=== PATIENT | male | born 1955 | race Caucasian/White ===

== ENCOUNTER 2017-03-22 15:32 | Emergency (ER) | payer BC ==
[~2017-03-22] VITALS: Ht 175.3 cm; Wt 110.6 kg
[~2017-03-22 15:32] MED LIST: ASPI-611 PO; CITA-50 PO; FINA5TAB40 PO; HYDR-2164 PO; LOVA20TA71 PO; METF-200 PO; METO-68 PO
[2017-03-22 15:37] VITALS: Ht 175.3 cm; Wt 110.6 kg
--- OUTSIDE RECORDS SUMMARY | 2017-03-22 15:37 | XMS REPORT | Referral Summary ---
Author Author [facility] Organization [facility] Address Unknown Phone Unavailable Care Team Providers Care Core Winding Operator Name Role Phone Russell Rosa Primary Care Physician [phone] Encounter VC Date(s): 09/03/15 - 09/03/15 [facility] [address] [place] [address] [place] [id number] Discharge Diagnosis: Soft tissue mass Discharge Disposition: 01-Home or Self Care Attending Physician: Rickie Lopez MD Admitting Physician: Rickie Lopez MD Referring Physician: Nick Rosa MD Vital Signs Most recent to 1 oldest [Reference Range]: Temperature Tympanic 36.9 degC [36.6-38.1 degC] (09/03/15 8:52 AM) Blood Pressure 122/86 mmHg [90-140/60-90 mmHg] (09/03/15 8:52 AM) Problem List Condition Effective Dates Status Health Status Informant Adult-onset Active obesity(Confirmed) Anxiety(Confirmed) Active Benign essential Active HTN(Confirmed) BPH (benign Active prostatic hyperplasia)(Confirm ed) Controlled diabetes Active mellitus(Confirmed) Chronic Active gout(Confirmed) Hyperlipidemia(Confi Active rmed) ED (erectile Active dysfunction)(Confirm ed) Mass on Active back(Confirmed) Snoring(Confirmed) Active Allergies, Adverse Reactions, Alerts No Known Allergies Medications aspirin 81 mg oral tablet 81 mg 1 tabs, Oral, Daily, # 30 tabs, 0 Refill(s) Start Date: 09/03/15 Status: Ordered Cialis 20 mg oral tablet tabs, Oral, Daily, 0 Refill(s) Start Date: 05/07/14 Status: Ordered citalopram 20 mg oral tablet See Instructions, TAKE ONE TABLET BY MOUTH ONCE DAILY, # 90 tabs, 1 Refill(s), eRx: [id number], TAKE ONE TABLET BY MOUTH ONCE DAILY Start Date: 08/01/15 Status: Ordered Daily Multivitamins oral tablet 1 tabs, Oral, Daily, 0 Refill(s) Start Date: 09/03/15 Status: Ordered finasteride 5 mg oral tablet See Instructions, TAKE ONE TABLET BY MOUTH ONCE DAILY NEEDS APPT PRIOR TO ADDITIONAL REFILLS, # 90 tabs, 0 Refill(s), Pharmacy: [facility] [id number], TAKE ONE TABLET BY MOUTH ONCE DAILY; NEEDS APPT PRIOR TO ADDITIONAL REFILLS Start Date: 07/17/15 Status: Ordered Fish Oil 1000 mg oral capsule 1,000 mg 1 caps, Oral, BID, # 60 caps, 0 Refill(s) Start Date: 09/03/15 Status: Ordered hydrochlorothiazide 25 mg oral tablet 1 tabs, Oral, Daily, # 90 tabs, 1 Refill(s), Pharmacy: [facility] [id number], 1 tabs Oral Daily,x90 days Start Date: 12/24/14 Stop Date: 06/22/15 Status: Ordered HYDROCHLOROTHIAZIDE 25MG TAB See Instructions, TAKE ONE TABLET BY MOUTH ONCE DAILY, # 90 tabs, 1 Refill(s), eRx: [facility] [id number], TAKE ONE TABLET BY MOUTH ONCE DAILY Start Date: 08/01/15 Status: Ordered lisinopril 30 mg oral tablet 1 tabs, Oral, Daily, # 30 tabs, 0 Refill(s), Pharmacy: [facility] [id number] Start Date: 12/24/14 Status: Ordered lovastatin 20 mg oral tablet See Instructions, TAKE TWO TABLETS BY MOUTH ONCE DAILY, # 180 tabs, 1 Refill(s) , eRx: [facility] [id number], TAKE TWO TABLETS BY MOUTH ONCE DAILY Start Date: 08/01/15 Status: Ordered metFORMIN 500 mg oral tablet See Instructions, TAKE ONE TABLET BY MOUTH ONCE DAILY, # 90 tabs, 1 Refill(s), eRx: [facility] [id number], TAKE ONE TABLET BY MOUTH ONCE DAILY Start Date: 08/01/15 Status: Ordered Metoprolol Tartrate 50 mg oral tablet See Instructions, TAKE ONE TABLET BY MOUTH TWICE DAILY, # 180 tabs, 2 Refill(s) , eRx: [facility] [id number], TAKE ONE TABLET BY MOUTH TWICE DAILY Start Date: 08/07/15 Status: Ordered Results No data available for this section Immunizations No data available for this section Procedures Procedure Date Related Diagnosis Body Site Prostate specific antigen 02/14/12 Prostate specific antigen 08/13/11 Prostate specific antigen 05/18/11 Colonoscopy Social History Social History Type Response Smoking Status Never smoker Assessment and Plan No data available for this section
--- OUTSIDE RECORDS SUMMARY | 2017-03-22 15:37 | XMS REPORT | Referral Summary ---
Author Author [facility] Organization [facility] Address Unknown Phone Unavailable Care Team Providers Care Fisher Eel Spear Name Role Phone Russell Rosa Primary Care Physician [phone] Encounter Date(s): 06/23/16 - 06/23/16 [facility] [address] [place] [address] [place] [id number]- Discharge Disposition: 01-Home or Self Care Attending Physician: Nick Rosa MD Admitting Physician: Nick Rosa MD Vital Signs Most recent to 1 oldest [Reference Range]: Blood Pressure 140/100 mmHg [90-140/60-90 mmHg] (06/23/16 2:26 PM) Problem List Condition Effective Dates Status Health Status Informant Adult-onset Active obesity(Confirmed) Anxiety(Confirmed) Active Benign essential Active HTN(Confirmed) BPH (benign Active prostatic hyperplasia)(Confirm ed) Controlled diabetes Active mellitus(Confirmed) Chronic Active gout(Confirmed) Hyperlipidemia(Confi Active rmed) ED (erectile Active dysfunction)(Confirm ed) Mass on Active back(Confirmed) Chronic left Active shoulder pain(Confirmed) Snoring(Confirmed) Active Allergies, Adverse Reactions, Alerts No Known Allergies Medications aspirin 81 mg oral tablet 81 mg 1 tabs, Oral, Daily, # 30 tabs, 0 Refill(s) Start Date: 09/03/15 Status: Ordered Cialis 20 mg oral tablet See Instructions, TAKE 1/2 TO 1 TABLET BY MOUTH ONE OR TWO HOURS BEFORE USE ON AN EMPTY STOMACH, # 6 tabs, 0 Refill(s), Pharmacy: [id number], TAKE 1/2 TO 1 TABLET BY MOUTH ONE OR TWO HOURS BEFORE USE ON AN EMPTY STOMACH Start Date: 06/23/16 Status: Ordered citalopram 20 mg oral tablet 20 mg 1 tabs, Oral, Daily, # 90 tabs, 1 Refill(s), Pharmacy: [facility], 1 tabs Oral Daily Start Date: 06/23/16 Status: Ordered Daily Multivitamins oral tablet 1 tabs, Oral, Daily, 0 Refill(s) Start Date: 09/03/15 Status: Ordered finasteride 5 mg oral tablet 5 mg 1 tabs, Oral, Daily, # 90 tabs, 1 Refill(s), Pharmacy: [facility], 1 tabs Oral Daily Start Date: 06/23/16 Status: Ordered Fish Oil 1000 mg oral capsule 1,000 mg 1 caps, Oral, BID, # 60 caps, 0 Refill(s) Start Date: 09/03/15 Status: Ordered hydrochlorothiazide 25 mg oral tablet 25 mg 1 tabs, Oral, Daily, # 90 tabs, 1 Refill(s), Pharmacy: [id number], 1 tabs Oral Daily,x90 days Start Date: 06/23/16 Stop Date: 12/20/16 Status: Ordered lisinopril 30 mg oral tablet 30 mg 1 tabs, Oral, Daily, # 90 tabs, 1 Refill(s), Pharmacy: [facility] Start Date: 06/23/16 Status: Ordered lovastatin 20 mg oral tablet 40 mg 2 tabs, Oral, Daily, # 180 tabs, 1 Refill(s), Pharmacy: [facility], 2 tabs Oral Daily,x90 days Start Date: 05/27/16 Stop Date: 11/23/16 Status: Ordered metFORMIN 500 mg oral tablet 500 mg 1 tabs, Oral, Daily, # 90 tabs, 1 Refill(s), Pharmacy: [facility], 1 tabs Oral Daily Start Date: 06/23/16 Status: Ordered Metoprolol Tartrate 50 mg oral tablet 50 mg 1 tabs, Oral, BID, # 180 tabs, 1 Refill(s), Pharmacy: [facility], 1 tabs Oral BID Start Date: 06/23/16 Status: Ordered Results No data available for this section Immunizations No data available for this section Procedures Procedure Date Related Diagnosis Body Site Excision of lipoma1 09/18/15 Prostate specific antigen 02/14/12 Prostate specific antigen 08/13/11 Prostate specific antigen 05/18/11 Colonoscopy 1LIPOMA REMOVED FROM RIGHT LATERAL CHEST AND LEFT LUMBAR AREA. Social History Social History Type Response Smoking Status Never smoker Assessment and Plan Extracted from: Title: Ambulatory Patient Education Author: Nick Rosa MD Date: Family Medicine Arthritis, Nonspecific Arthritis is inflammation of a joint. This usually means pain, redness, warmth or swelling are present. One or more joints may be involved. There are a number of types of arthritis. Your caregiver may not be able to tell what type of arthritis you have right away. CAUSES The most common cause of arthritis is the wear and tear on the joint ( osteoarthritis). This causes damage to the cartilage, which can break down over time. The knees, hips, back and neck are most often affected by this type of arthritis. Other types of arthritis and common causes of joint pain include: Sprains and other injuries near the joint. Sometimes minor sprains and injuries cause pain and swelling that develop hours later. Rheumatoid arthritis. This affects hands, feet and knees. It usually affects both sides of your body at the same time. It is often associated with chronic ailments, fever, weight loss and general weakness. Crystal arthritis. Gout and pseudo gout can cause occasional acute severe pain, redness and swelling in the foot, ankle, or knee. Infectious arthritis. Bacteria can get into a joint through a break in overlying skin. This can cause infection of the joint. Bacteria and viruses can also spread through the blood and affect your joints. Drug, infectious and allergy reactions. Sometimes joints can become mildly painful and slightly swollen with these types of illnesses. SYMPTOMS Pain is the main symptom. Your joint or joints can also be red, swollen and warm or hot to the touch. You may have a fever with certain types of arthritis, or even feel overall ill. The joint with arthritis will hurt with movement. Stiffness is present with some types of arthritis. DIAGNOSIS Your caregiver will suspect arthritis based on your description of your symptoms and on your exam. Testing may be needed to find the type of arthritis: Blood and sometimes urine tests. X-ray tests and sometimes CT or MRI scans. Removal of fluid from the joint (arthrocentesis) is done to check for bacteria, crystals or other causes. Your caregiver (or a specialist) will numb the area over the joint with a local anesthetic, and use a needle to remove joint fluid for examination. This procedure is only minimally uncomfortable. Even with these tests, your caregiver may not be able to tell what kind of arthritis you have. Consultation with a specialist (patent lawyer) may be helpful. TREATMENT Your caregiver will discuss with you treatment specific to your type of arthritis. If the specific type cannot be determined, then the following general recommendations may apply. Treatment of severe joint pain includes: Rest. Elevation. Anti-inflammatory medication (for example, ibuprofen) may be prescribed. Avoiding activities that cause increased pain. Only take [id number] or prescription medicines for pain and discomfort as recommended by your caregiver. Cold packs over an inflamed joint may be used for 10 to 15 minutes every hour. Hot packs sometimes feel better, but do not use overnight. Do not use hot packs if you are diabetic without your caregiver's permission. A cortisone shot into arthritic joints may help reduce pain and swelling. Any acute arthritis that gets worse over the next 1 to 2 days needs to be looked at to be sure there is no joint infection. Long-term arthritis treatment involves modifying activities and lifestyle to reduce joint stress jarring. This can include weight loss. Also, exercise is needed to nourish the joint cartilage and remove waste. This helps keep the muscles around the joint strong. HOME CARE INSTRUCTIONS Do not take aspirin to relieve pain if gout is suspected. This elevates uric acid levels. Only take lxss-que-eelrprz or prescription medicines for pain, discomfort or fever as directed by your caregiver. Rest the joint as much as possible. If your joint is swollen, keep it elevated. Use crutches if the painful joint is in your leg. Drinking plenty of fluids may help for certain types of arthritis. Follow your caregiver's dietary instructions. Try low-impact exercise such as: Swimming. Water aerobics. Biking. Walking. Morning stiffness is often relieved by a warm shower. Put your joints through regular kwchz-pu-pzdavl. SEEK MEDICAL CARE IF: You do not feel better in 24 hours or are getting worse. You have side effects to medications, or are not getting better with treatment. SEEK IMMEDIATE MEDICAL CARE IF: You have a fever. You develop severe joint pain, swelling or redness. Many joints are involved and become painful and swollen. There is severe back pain and/or leg weakness. You have loss of bowel or bladder control. This information is not intended to replace advice given to you by your health care provider. Make sure you discuss any questions you have with your health care provider. Document Released: 11/24/2005 Document Revised: 11/07/2015 Document Reviewed: Exit[employer] Patient Information 2016 [employer] [facility]. No follow up information was provided. Extracted from: Title: Office Visit Note Author: Nick Rosa MD Date: 06/23/16 Assessment/Plan Adult-onset obesity Diet and exercise as tolerated and feasible. Consider medication when interested. Anxiety This issue was reviewed, appears stable, and current therapy continued except as mentioned. Appropriate lab was reviewed from the most recent appropriate entry and lab was ordered if needed in the cpoe/nursing orders, and follow up recommended generally in 90 days and no later then six months. Benign essential HTN This issue was reviewed, appears stable, and current therapy continued except as mentioned. Appropriate lab was reviewed from the most recent appropriate entry and lab was ordered if needed in the cpoe/nursing orders, and follow up recommended generally in 90 days and no later then six months. The patient reports their blood pressure has been stable at home and is not having any significant or related problems. There has been no chest pain, chest pressure, soa/red. BPH (benign prostatic hyperplasia) This issue was reviewed, appears stable, and current therapy continued except as mentioned. Appropriate lab was reviewed from the most recent appropriate entry and lab was ordered if needed in the cpoe/nursing orders, and follow up recommended generally in 90 days and no later then six months. Chronic gout This issue was reviewed, appears stable, and current therapy continued except as mentioned. Appropriate lab was reviewed from the most recent appropriate entry and lab was ordered if needed in the cpoe/nursing orders, and follow up recommended generally in 90 days and no later then six months. Lab pending. Chronic left shoulder pain We discussed several options for treatment for this condition. The patient declined any changes or other treatments at this time. Controlled diabetes mellitus This issue was reviewed, appears stable, and current therapy continued except as mentioned. Appropriate lab was reviewed from the most recent appropriate entry and lab was ordered if needed in the cpoe /nursing orders, and follow up recommended generally in 90 days and no later then six months. The patient was notified for the need for regular quarterly f/u of their diabetes. Further any pertinent medication, supplies, etc were refilled. Additionally, they are to have annual eye exams, foot exams, and regular care. [place] [facility] [place] (erectile dysfunction) This issue was reviewed, appears stable, and current therapy continued except as mentioned. Appropriate lab was reviewed from the most recent appropriate entry and lab was ordered if needed in the cpoe /nursing orders, and follow up recommended generally in 90 days and no later then six months. Hyperlipidemia This issue was reviewed, appears stable, and current therapy continued except as mentioned. Appropriate lab was reviewed from the most recent appropriate entry and lab was ordered if needed in the cpoe/nursing orders, and follow up recommended generally in 90 days and no later then six months. [place] [facility] [place]
--- OUTSIDE RECORDS SUMMARY | 2017-03-22 15:37 | XMS REPORT | Continuity of Care Document ---
Author Author Patrice PEREZ, [facility] [address] [place] [address] [facility] [place] [address] Phone Care Team Providers Care Chain Mender Name Role Phone Nick Rosa PP Unavailable Payers Payer name Insurance type Covered constitution party ID Authorization(s) Unknown Problems Condition Effective Dates (start - stop) Clinical Status Health examination of defined subpopulations - *Routine Well male exam - *Chronic Other specified temporomandibular joint disorders - *Resolved Hypertension, Benign - *Chronic Other and unspecified hyperlipidemia - *Controlled Anxiety - *Controlled Diabetes Mellitus Type 2, Uncomplicated - *Chronic BPH - *Controlled Erectile Dysfunction - *Controlled Hypertension, Benign - *Chronic Diabetes Mellitus Type 2, Uncomplicated - *Chronic Other and unspecified hyperlipidemia - *Chronic Anxiety - *Chronic Erectile Dysfunction - *Chronic Obesity - *Chronic Depression - *Chronic Otalgia - *Acute Temporomandibular joint disorders, unspecified - *Acute Hypertension, Benign - *Chronic Other and unspecified hyperlipidemia - *Chronic Diabetes Mellitus Type 2, Uncomplicated - *Chronic BPH - *Chronic Erectile Dysfunction - *Chronic Anxiety - *Chronic Family History Family Member Diagnosis Age At Onset Status Mother (Unknown) Alive and well (Unknown) Father (Unknown) Alive and well (Unknown) Social History Social History Element Description Quantity Unknown Allergies, Adverse Reactions, Alerts Substance Reaction Severity Status Unknown Medications Medication Instructions Dosage Effective Dates (start - stop) Status Glucophage 500 mg tablet Take 1 tablet by mouth every day. - Active Celexa 20 mg tablet Take 1 tablet by mouth every day. - Active Ativan 0.5 mg tablet Take 1 tablet by mouth every 8 hours as needed. - Active finasteride 5 mg tablet Take 1 tablet by mouth every day. - Active hydrochlorothiazide 25 mg tablet Take 1 tablet by mouth every day. 2013 - Active metoprolol tartrate 50 mg tablet Take 1 tablet by mouth twice a day. - Active Mevacor 20 mg tablet take 2 tablet (40MG) by oral route every day with the evening meal 40 MG - Active Cialis 20 mg tablet Take 1/2 to 1 tablet by mouth 1 or 2 hours before use on an empty stomach. - Active Immunizations Vaccine Date Status Comments Unknown Results Test Name Date and Time Measure Units Reference Range Abnormal Flag Comments Unknown Vital Signs Date / Time: Height Weight Pulse Rate Blood Pressure Temperature /13:23:00 69.00 in 233.00 lbs 70 /min 136/88 mm[Hg] Procedures Procedure Date Unknown Encounters Encounter Location Date Patient Visit [facility] Patient Visit [facility] Patient [facility] Patient [facility] Patient Visit [facility] Advance Directives Directive Effective Date Unknown
--- OUTSIDE RECORDS SUMMARY | 2017-03-22 15:37 | XMS REPORT | Referral Summary ---
Author Author [facility] Organization [facility] Address Unknown Phone Unavailable Care Team Providers Care Tin Flopper Name Role Phone Russell Rosa Primary Care Physician [phone] Encounter VC Date(s): 08/27/15 - 08/27/15 [facility] [address] [place] [address] [place] [id number]- Discharge Disposition: 01-Home or Self Care Attending Physician: Nick Rosa MD Admitting Physician: Nick Rosa MD Vital Signs Most recent to 1 oldest [Reference Range]: Blood Pressure 150/90 mmHg [90-140/60-90 mmHg] *HI* (08/27/15 1:37 PM) Problem List Condition Effective Dates Status Health Status Informant Adult-onset Active obesity(Confirmed) Anxiety(Confirmed) Active Benign essential Active HTN(Confirmed) BPH (benign Active prostatic hyperplasia)(Confirm ed) Controlled diabetes Active mellitus(Confirmed) Chronic Active gout(Confirmed) Hyperlipidemia(Confi Active rmed) ED (erectile Active dysfunction)(Confirm ed) Mass on Active back(Confirmed) Snoring(Confirmed) Active Allergies, Adverse Reactions, Alerts No Known Allergies Medications Cialis 20 mg oral tablet tabs, Oral, Daily, 0 Refill(s) Start Date: 05/07/14 Status: Ordered citalopram 20 mg oral tablet See Instructions, TAKE ONE TABLET BY MOUTH ONCE DAILY, # 90 tabs, 1 Refill(s), eRx: [facility], TAKE ONE TABLET BY MOUTH ONCE DAILY Start Date: 08/01/15 Status: Ordered finasteride 5 mg oral tablet See Instructions, TAKE ONE TABLET BY MOUTH ONCE DAILY NEEDS APPT PRIOR TO ADDITIONAL REFILLS, # 90 tabs, 0 Refill(s), Pharmacy: [facility], TAKE ONE TABLET BY MOUTH ONCE DAILY; NEEDS APPT PRIOR TO ADDITIONAL REFILLS Start Date: 07/17/15 Status: Ordered hydrochlorothiazide 25 mg oral tablet 1 tabs, Oral, Daily, # 90 tabs, 1 Refill(s), Pharmacy: [place] [facility] [id number], 1 tabs Oral Daily,x90 days Start Date: 12/24/14 Stop Date: 06/22/15 Status: Ordered HYDROCHLOROTHIAZIDE 25MG TAB See Instructions, TAKE ONE TABLET BY MOUTH ONCE DAILY, # 90 tabs, 1 Refill(s), eRx: [place] [facility] [id number], TAKE ONE TABLET BY MOUTH ONCE DAILY Start Date: 08/01/15 Status: Ordered lisinopril 30 mg oral tablet 1 tabs, Oral, Daily, # 30 tabs, 0 Refill(s), Pharmacy: [place] [facility] [id number] Start Date: 12/24/14 Status: Ordered lovastatin 20 mg oral tablet See Instructions, TAKE TWO TABLETS BY MOUTH ONCE DAILY, # 180 tabs, 1 Refill(s) , eRx: [place] [facility] [id number], TAKE TWO TABLETS BY MOUTH ONCE DAILY Start Date: 08/01/15 Status: Ordered metFORMIN 500 mg oral tablet See Instructions, TAKE ONE TABLET BY MOUTH ONCE DAILY, # 90 tabs, 1 Refill(s), eRx: [facility] [id number], TAKE ONE TABLET BY MOUTH ONCE DAILY Start Date: 08/01/15 Status: Ordered Metoprolol Tartrate 50 mg oral tablet See Instructions, TAKE ONE TABLET BY MOUTH TWICE DAILY, # 180 tabs, 2 Refill(s) , eRx: [facility], TAKE ONE TABLET BY MOUTH TWICE DAILY [...] Author: Nick Rosa MD Date: Family Medicine Cryotherapy Cryotherapy means treatment with cold. Ice or gel packs can be used to reduce both pain and swelling. Ice is the most helpful within the first 24 to 48 hours after an injury or flare-up from overusing a muscle or joint. Sprains, strains, spasms, burning pain, shooting pain, and aches can all be eased with ice. Ice can also be used when recovering from surgery. Ice is effective, has very few side effects, and is safe for most people to use. PRECAUTIONS Ice is not a safe treatment option for people with: Raynaud phenomenon. This is a condition affecting small blood vessels in the extremities. Exposure to cold may cause your problems to return. Cold hypersensitivity. There are many forms of cold hypersensitivity, including: Cold urticaria. Red, itchy hives appear on the skin when the tissues begin to warm after being iced. Cold erythema. This is a red, itchy rash caused by exposure to cold. Cold hemoglobinuria. Red blood cells break down when the tissues begin to warm after being iced. The hemoglobin that carry oxygen are passed into the urine because they cannot combine with blood proteins fast enough. Numbness or altered sensitivity in the area being iced. If you have any of the following conditions, do not use ice until you have discussed cryotherapy with your caregiver: Heart conditions, such as arrhythmia, angina, or chronic heart disease. High blood pressure. Healing wounds or open skin in the area being iced. Current infections. Rheumatoid arthritis. Poor circulation. Diabetes. Ice slows the blood flow in the region it is applied. This is beneficial when trying to stop inflamed tissues from spreading irritating chemicals to surrounding tissues. However, if you expose your skin to cold temperatures for too long or without the proper protection, you can damage your skin or nerves. Watch for signs of skin damage due to cold. HOME CARE INSTRUCTIONS Follow these tips to use ice and cold packs safely. Place a dry or damp towel between the ice and skin. A damp towel will cool the skin more quickly, so you may need to shorten the time that the ice is used. For a more rapid response, add gentle compression to the ice. Ice for no more than 10 to 20 minutes at a time. The bonier the area you are icing, the less time it will take to get the benefits of ice. Check your skin after 5 minutes to make sure there are no signs of a poor response to cold or skin damage. Rest 20 minutes or more between uses. Once your skin is numb, you can end your treatment. You can test numbness by very lightly touching your skin. The touch should be so light that you do not see the skin dimple from the pressure of your fingertip. When using ice, most people will feel these normal sensations in this order: cold, burning, aching, and numbness. Do not use ice on someone who cannot communicate their responses to pain, such as small children or people with dementia. HOW TO MAKE AN ICE PACK Ice packs are the most common way to use ice therapy. Other methods include ice massage, ice baths, and cryosprays. Muscle creams that cause a cold, tingly feeling do not offer the same benefits that ice offers and should not be used as a substitute unless recommended by your caregiver. To make an ice pack, do one of the following: Place crushed ice or a bag of frozen vegetables in a sealable plastic bag. Squeeze out the excess air. Place this bag inside another plastic bag. Slide the bag into a pillowcase or place a damp towel between your skin and the bag. Mix 3 parts water with 1 part rubbing alcohol. Freeze the mixture in a sealable plastic bag. When you remove the mixture from the freezer, it will be slushy. Squeeze out the excess air. Place this bag inside another plastic bag. Slide the bag into a pillowcase or place a damp towel between your skin and the bag. SEEK MEDICAL CARE IF: You develop white spots on your skin. This may give the skin a blotchy ( mottled) appearance. Your skin turns blue or pale. Your skin becomes waxy or hard. Your swelling gets worse. MAKE SURE YOU: Understand these instructions. Will watch your condition. Will get help right away if you are not doing well or get worse. Document Released: 06/12/2012 Document Revised: 03/03/2015 Document Reviewed: [employer] Patient Information 2015 [facility], [facility]. This information is not intended to replace advice given to you by your health care provider. Make sure you discuss any questions you have with your health care provider. No follow up information was provided. Extracted from: Title: Office Visit Note Author: Nick Rosa MD Date: 08/27/15 Assessment/Plan Acute leg pain This issue is stable and appropriate refills, lab, and f/u have been discussed. The patient's outside physician records were reviewed. Any pertinent outside records, lab, and xrays were also reviewed if available. Hosp note reviewed. Encounter related to worker's compensation claim He has limitations and a RTW note already by report. He is on time off and plan partial day return on 09/01. I would recommendNO extendeddriving for another week and to continue an asa 81mg daily. Close monitoring for dvt. Leg hematoma See above. The patient has family members present who are agreeable with today's plan and have no additional concerns or requests. hold worker from employer is here.
--- OUTSIDE RECORDS SUMMARY | 2017-03-22 15:37 | XMS REPORT | Referral Summary ---
Author Author [facility] Organization [facility] Address Unknown Phone Unavailable Care Team Providers Care Motor Home Electrical Foreman Name Role Phone Russell Rosa Primary Care Physician [phone] Encounter Date(s): 08/27/15 - 08/27/15 [facility] [address] [place] [address] [place] [phone]- Discharge Disposition: 01-Home or Self Care Attending [...] ON AN EMPTY STOMACH, # 6 tabs, eRx: [facility], TAKE 1/2 TO 1 TABLET BY MOUTH ONE OR TWO HOURS BEFORE USE ON AN EMPTY STOMACH Start Date: 12/19/15 Status: Ordered citalopram 20 mg oral tablet See Instructions, TAKE ONE TABLET BY MOUTH ONCE DAILY, # 90 tabs, 1 Refill(s), eRx: [facility], TAKE ONE TABLET BY MOUTH ONCE DAILY Start Date: 08/01/15 Status: Ordered citalopram 20 mg oral tablet See Instructions, TAKE ONE TABLET BY MOUTH ONCE DAILY, # 90 tabs, eRx: [facility], TAKE ONE TABLET BY MOUTH ONCE DAILY Start Date: 02/26/16 Status: Ordered Daily Multivitamins oral tablet 1 tabs, Oral, Daily, 0 Refill(s) Start Date: 09/03/15 Status: Ordered finasteride 5 mg oral tablet See Instructions, TAKE ONE TABLET BY MOUTH ONCE DAILY, # 90 tabs, eRx: [facility] [id number], TAKE ONE TABLET BY MOUTH ONCE DAILY Start Date: 01/20/16 Status: Ordered Fish Oil 1000 mg oral capsule 1,000 mg 1 caps, Oral, BID, # 60 caps, 0 Refill(s) Start Date: 09/03/15 Status: Ordered HYDROCHLOROT 25MG TAB See Instructions, TAKE ONE TABLET BY MOUTH ONCE DAILY, # 90 tabs, eRx: [place] [address], TAKE ONE TABLET BY MOUTH ONCE DAILY Start Date: 02/26/16 Status: Ordered hydrochlorothiazide 25 mg oral tablet 1 tabs, Oral, Daily, # 90 tabs, 1 Refill(s), Pharmacy: [place] [address], 1 tabs Oral Daily,x90 days Start Date: 12/24/14 Stop Date: 06/22/15 Status: Ordered lisinopril 30 mg oral tablet 1 tabs, Oral, Daily, # 30 tabs, 0 Refill(s), Pharmacy: [place] [address] Start Date: 12/24/14 Status: Ordered lovastatin 20 mg oral tablet See Instructions, TAKE TWO TABLETS BY MOUTH ONCE DAILY, # 180 tabs, 1 Refill(s) , eRx: [place] [address], TAKE TWO TABLETS BY MOUTH ONCE DAILY Start Date: 08/01/15 Status: Ordered lovastatin 20 mg oral tablet See Instructions, TAKE TWO TABLETS BY MOUTH ONCE DAILY, # 180 tabs, eRx: [facility], TAKE TWO TABLETS BY MOUTH ONCE DAILY Start Date: 02/26/16 Status: Ordered metFORMIN 500 mg oral tablet See Instructions, TAKE ONE TABLET BY MOUTH ONCE DAILY, # 90 tabs, eRx: [facility] [id number], TAKE ONE TABLET BY MOUTH ONCE DAILY Start Date: 01/28/16 Status: Ordered Metoprolol Tartrate 50 mg oral tablet See Instructions, TAKE ONE TABLET BY MOUTH TWICE DAILY, # 180 tabs, 2 Refill(s) , eRx: [id number], TAKE ONE TABLET BY MOUTH TWICE DAILY [...] Released: 06/12/2012 Document Revised: 03/03/2015 Document Reviewed: [facility] Patient Information 2015 [employer] [employer] [facility]. This information is not intended to replace [...] and have no additional concerns or requests. care worker from employer is here.
--- OUTSIDE RECORDS SUMMARY | 2017-03-22 15:37 | XMS REPORT | Referral Summary ---
Author Author [facility] Organization [facility] Address Unknown Phone Unavailable Care Team Providers Care Staff Sonographer Name Role Phone Russell Rosa Primary Care Physician [phone] Encounter VC Date(s): 07/31/15 - 07/31/15 [facility] [address] [place] [phone]- Discharge Disposition: 01-Home or Self Care Attending Physician: Nick Rosa MD Admitting Physician: Nick Rosa MD Vital Signs Most recent to 1 oldest [Reference Range]: Blood Pressure 160/90 mmHg [90-140/60-90 mmHg] *HI* (07/31/15 4:09 PM) Problem List Condition Effective Dates Status [...] AN EMPTY STOMACH, # 6 tabs, eRx: [email or web address], TAKE 1/2 TO 1 TABLET BY MOUTH ONE OR TWO HOURS BEFORE USE ON AN EMPTY STOMACH Start Date: 12/19/15 Status: Ordered citalopram 20 mg oral tablet See Instructions, TAKE ONE TABLET BY MOUTH ONCE DAILY, # 90 tabs, 1 Refill(s), eRx: [email or web address], TAKE ONE TABLET BY MOUTH ONCE DAILY Start Date: 08/01/15 Status: Ordered Daily Multivitamins oral tablet 1 tabs, Oral, Daily, 0 Refill(s) Start Date: 09/03/15 Status: Ordered finasteride 5 mg oral tablet See Instructions, TAKE ONE TABLET BY MOUTH ONCE DAILY, # 90 tabs, eRx: [facility], TAKE ONE TABLET BY MOUTH ONCE DAILY Start Date: 01/20/16 Status: Ordered Fish Oil 1000 mg oral capsule 1,000 mg 1 caps, Oral, BID, # 60 caps, 0 Refill(s) Start Date: 09/03/15 Status: Ordered hydrochlorothiazide 25 mg oral tablet 1 tabs, Oral, Daily, # 90 tabs, 1 Refill(s), Pharmacy: [place] [address], 1 tabs Oral Daily,x90 days Start Date: 12/24/14 Stop Date: 06/22/15 Status: Ordered lisinopril 30 mg oral tablet 1 tabs, Oral, Daily, # 30 tabs, 0 Refill(s), Pharmacy: [place] [address] Start Date: 12/24/14 Status: Ordered lovastatin 20 mg oral tablet See Instructions, TAKE TWO TABLETS BY MOUTH ONCE DAILY, # 180 tabs, 1 Refill(s) , eRx: [facility], TAKE TWO TABLETS BY MOUTH ONCE DAILY Start Date: 08/01/15 Status: Ordered metFORMIN 500 mg oral tablet See Instructions, TAKE ONE TABLET BY MOUTH ONCE DAILY, # 90 tabs, eRx: [facility], TAKE ONE TABLET BY MOUTH ONCE DAILY Start Date: 01/28/16 Status: Ordered Metoprolol Tartrate 50 mg oral tablet See Instructions, TAKE ONE TABLET BY MOUTH TWICE DAILY, # 180 tabs, 2 Refill(s) , eRx: [facility], TAKE ONE TABLET BY MOUTH TWICE DAILY [...] Author: Nick Rosa MD Date: Family Medicine Cholesterol Cholesterol is a white, waxy, fat-like substance needed by your body in small amounts. The liver makes all the cholesterol you need. Cholesterol is carried from the liver by the blood through the blood vessels. Deposits of cholesterol ( plaque) may build up on blood vessel bryan. These make the arteries narrower and stiffer. Cholesterol plaques increase the risk for heart attack and stroke. You cannot feel your cholesterol level even if it is very high. The only way to know it is high is with a blood test. Once you know your cholesterol levels, you should keep a record of the test results. Work with your health care provider to keep your levels in the desired range. WHAT DO THE RESULTS MEAN? Total cholesterol is a rough measure of all the cholesterol in your blood. LDL is the so-called bad cholesterol. This is the type that deposits cholesterol in the bryan of the arteries. You want this level to be low. HDL is the good cholesterol because it cleans the arteries and carries the LDL away. You want this level to be high. Triglycerides are fat that the body can either burn for energy or store. High levels are closely linked to heart disease. WHAT ARE THE DESIRED LEVELS OF CHOLESTEROL? Total cholesterol below 200. LDL below 100 for people at risk, below 70 for those at very high risk. HDL above 50 is good, above 60 is best. Triglycerides below 150. HOW CAN I LOWER MY CHOLESTEROL? Diet. Follow your diet programs as directed by your health care provider. Choose fish or white meat chicken and turkey, roasted or baked. Limit fatty cuts of red meat, fried foods, and processed meats, such as sausage and lunch meats. Eat lots of fresh fruits and vegetables. Choose whole grains, beans, pasta, potatoes, and cereals. Use only small amounts of olive, corn, or canola oils. Avoid butter, mayonnaise, shortening, or palm kernel oils. Avoid foods with trans fats. Drink skim or nonfat milk and eat low-fat or nonfat yogurt and cheeses. Avoid whole milk, cream, ice cream, egg yolks, and full-fat cheeses. Healthy desserts include wiley food cake, josé antonio snaps, animal crackers, hard candy, popsicles, and low-fat or nonfat frozen yogurt. Avoid pastries, cakes, pies, and cookies. Exercise. Follow your exercise programs as directed by your health care provider. A regular program helps decrease LDL and raise HDL. A regular program helps with weight control. Do things that increase your activity level like gardening, walking, or taking the stairs. Ask your health care provider about how you can be more active in your daily life. Medicine. Take medicine only as directed by your health care provider. Medicine may be prescribed by your health care provider to help lower cholesterol and decrease the risk for heart disease. If you have several risk factors, you may need medicine even if your levels are normal. Document Released: 07/12/2002 Document Revised: 03/03/2015 Document Reviewed: [facility] Patient Information 2015 [employer]. This information is not intended to replace advice given to you by your health care provider. Make sure you discuss any questions you have with your health care provider. No follow up information was provided. Extracted from: Title: Office Visit Note Author: Nick Rosa MD Date: 07/31/15 Assessment/Plan Anxiety This issue is stable and appropriate refills, lab, and f/u have been discussed. A work/school note was offered and deferred by the patient. The patient has family members present who are agreeable with today's plan and have no additional concerns or requests. here. Benign essential HTN This issue is stable and appropriate refills, lab, and f/ u have been discussed. The patient reports their blood pressure has been stable at home and is not having any significant or related problems. There has been no chest pain, chest pressure, soa/red. Agrees to monitor bp. BPH (benign prostatic hyperplasia) This issue is stable and appropriate refills, lab, and f/u have been discussed. Chronic gout This issue is stable and appropriate refills, lab, and f/u have been discussed. Controlled diabetes mellitus This issue is stable and appropriate refills, lab , and f/u have been discussed. The patient was notified for the need for regular quarterly f/u of their diabetes. Further any pertinent medication, supplies, etc were refilled. Additionally, they are to have annual eye exams, foot exams, and regular care. Lab pending. Hyperlipidemia This issue is stable and appropriate refills, lab, and f/u have been discussed. Mass on back To Dr. LAGUERRE for evaluation and excision if indicated. Snoring This issue is stable and appropriate refills, lab, and f/u have been discussed. Addendum Lab had to be [place] [facility] [place]. by Nick Rosa MD on July 31, 2015 16:33:06 CDT
--- OUTSIDE RECORDS SUMMARY | 2017-03-22 15:37 | XMS REPORT | Referral Summary ---
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 Phone Russell Rosa Primary Care Physician [phone] Encounter VC Date(s): 12/24/14 - 12/24/14 [facility] [address] [place] [address] [place] [id number]- Discharge Diagnosis: High cholesterol Discharge Diagnosis: Snoring Discharge Diagnosis: Abnormal glucose Discharge Diagnosis: Controlled diabetes mellitus Discharge Diagnosis: ED (erectile dysfunction) Discharge Diagnosis: Hypertension Discharge Diagnosis: BPH (benign prostatic hyperplasia) Discharge Diagnosis: Adult-onset obesity Discharge Disposition: Home or Self Care Attending Physician: Nick Rosa MD Admitting Physician: Nick Rosa MD Vital Signs Most recent to 1 oldest [Reference Range]: Blood Pressure 160/110 mmHg [90-140/60-90 mmHg] *HI* (12/24/14 10:57 AM) Problem List Condition Effective Dates Status Health Status Informant Adult-onset Active obesity(Confirmed) Anxiety(Confirmed) Active Benign essential Active HTN(Confirmed) BPH (benign Active prostatic hyperplasia)(Confirm ed) Controlled diabetes Active mellitus(Confirmed) Hyperlipidemia(Confi Active rmed) ED (erectile Active dysfunction)(Confirm ed) Snoring(Confirmed) Active Allergies, Adverse Reactions, Alerts No data available for this section Medications Ativan 0.5 mg oral tablet 1 tabs, Oral, TID, as needed for anxiety, [facility], # 30 tabs, 0 Refill(s) Special Instructions: [facility] Start Date: 05/09/14 Status: Ordered CeleXA 20 mg oral tablet 1 tabs, Oral, Daily, # 90 tabs, 1 Refill(s), Pharmacy: [id number], 1 tabs Oral Daily Start Date: 05/09/14 Status: Ordered Cialis 20 mg oral tablet tabs, Oral, Daily, 0 Refill(s) Start Date: 05/07/14 Status: Ordered cyclobenzaprine 10 mg oral tablet 1 tabs, Oral, TID, as needed for spasm, # 60 tabs, 0 Refill(s), Pharmacy: [id number], 1 tabs Oral TID,PRN:as needed for spasm Start Date: 06/12/14 Status: Ordered finasteride 5 mg oral tablet 1 tabs, Oral, Daily, # 90 tabs, 1 Refill(s), Pharmacy: [facility], 1 tabs Oral Daily Start Date: 12/24/14 Status: Ordered hydrochlorothiazide 25 mg oral tablet 1 tabs, Oral, Daily, # 90 tabs, 1 Refill(s), Pharmacy: [place] [id number], 1 tabs Oral Daily,x90 days Start Date: 12/24/14 Stop Date: 06/22/15 Status: Ordered lisinopril 30 mg oral tablet 1 tabs, Oral, Daily, # 30 tabs, 0 Refill(s), Pharmacy: [place] [id number] Start Date: 12/24/14 Status: Ordered metFORMIN 500 mg oral tablet 1 tabs, Oral, Daily, # 90 tabs, 1 Refill(s), Pharmacy: [facility], 1 tabs Oral Daily Start Date: 05/09/14 Status: Ordered Metoprolol Tartrate 50 mg oral tablet 1 tabs, Oral, BID, # 180 tabs, 1 Refill(s), Pharmacy: [id number], 1 tabs Oral BID Start Date: 05/09/14 Status: Ordered Mevacor 20 mg oral tablet 2 tabs, Oral, Daily, # 180 tabs, 1 Refill(s), Pharmacy: [facility], 2 tabs Oral Daily Start Date: 08/12/14 Status: Ordered [place] 5 mg-325 mg oral tablet 1-2 tabs, Oral, TID, as needed for pain, [facility], # 60 tabs, 0 Refill(s) Special Instructions: [facility] Start Date: 06/12/14 Status: Ordered Results No data available for this section Immunizations No data available for this section Procedures Procedure Date Related Diagnosis Body Site Prostate specific antigen 02/14/12 Prostate specific antigen 08/13/11 Prostate specific antigen 05/18/11 Colonoscopy Social History Social History Type Response Smoking Status Never smoker Assessment and Plan Extracted from: Title: Ambulatory Patient Education Author: Nick Rosa MD Date: Family Medicine Arterial Hypertension Arterial hypertension (high blood pressure ) is a condition of elevated pressure in your blood vessels. Hypertension over a long period of time is a risk factor for strokes, heart attacks, and heart failure. It is also the leading cause of kidney (renal ) failure. CAUSES In Adults -- Over 90% of all hypertension has no known cause. This is called essential or primary hypertension. In the other 10% of people with hypertension, the increase in blood pressure is caused by another disorder. This is called secondary hypertension . Important causes of secondary hypertension are: Heavy alcohol use. Obstructive sleep apnea. Hyperaldosterosim (Conn's syndrome). Steroid use. Chronic kidney failure. Hyperparathyroidism. Medications. Renal artery stenosis. Pheochromocytoma. Ana's disease. Coarctation of the aorta. Scleroderma renal crisis. Licorice (in excessive amounts). Drugs (cocaine, methamphetamine). Your caregiver can explain any items above that apply to you. In Children -- Secondary hypertension is more common and should always be considered. -- Few women of childbearing age have high blood pressure. However, up to 10% of them develop hypertension of . Generally, this will not harm the woman. It may be a sign of 3 complications of : preeclampsia, HELLP syndrome, and eclampsia. Follow up and control with medication is necessary. SYMPTOMS This condition normally does not produce any noticeable symptoms. It is usually found during a routine exam. Malignant hypertension is a late problem of high blood pressure. It may have the following symptoms: Headaches. Blurred vision. End-organ damage (this means your kidneys, heart, lungs, and other organs are being damaged). Stressful situations can increase the blood pressure. If a person with normal blood pressure has their blood pressure go up while being seen by their caregiver, this is often termed "white coat hypertension." Its importance is not known. It may be related with eventually developing hypertension or complications of hypertension. Hypertension is often confused with mental tension, stress, and anxiety. DIAGNOSIS The diagnosis is made by 3 separate blood pressure measurements. They are taken at least 1 week apart from each other. If there is organ damage from hypertension, the diagnosis may be made without repeat measurements. Hypertension is usually identified by having blood pressure readings: Above 140/90 mmHg measured in both arms, at 3 separate times, over a couple weeks. Over 130/80 mmHg should be considered a risk factor and may require treatment in patients with diabetes. Blood pressure readings over 120/80 mmHg are called "pre-hypertension" even in non-diabetic patients. To get a true blood pressure measurement, use the following guidelines. Be aware of the factors that can alter blood pressure readings. Take measurements at least 1 hour after caffeine. Take measurements 30 minutes after smoking and without any stress. This is another reason to quit smoking it raises your blood pressure. Use a proper cuff size. Ask your caregiver if you are not sure about your cuff size. Most home blood pressure cuffs are automatic. They will measure systolic and diastolic pressures. The systolic pressure is the pressure reading at the start of sounds. Diastolic pressure is the pressure at which the sounds disappear. If you are elderly, measure pressures in multiple postures. Try sitting, lying or standing. Sit at rest for a minimum of 5 minutes before taking measurements. You should not be on any medications like decongestants. These are found in many cold medications. Record your blood pressure readings and review them with your caregiver. If you have hypertension: Your caregiver may do tests to be sure you do not have secondary hypertension (see "causes" above). Your caregiver may also look for signs of metabolic syndrome. This is also called Syndrome X or Insulin Resistance Syndrome. You may have this syndrome if you have type 2 diabetes, abdominal obesity, and abnormal blood lipids in addition to hypertension. Your caregiver will take your medical and family history and perform a physical exam. Diagnostic tests may include blood tests (for glucose, cholesterol, potassium, and kidney function), a urinalysis, or an EKG. Other tests may also be necessary depending on your condition. PREVENTION There are important lifestyle issues that you can adopt to reduce your chance of developing hypertension: Maintain a normal weight. Limit the amount of salt (sodium ) in your diet. Exercise often. Limit alcohol intake. Get enough potassium in your diet. Discuss specific advice with your caregiver. Follow a DASH diet (dietary approaches to stop hypertension). This diet is rich in fruits, vegetables, and low-fat dairy products, and avoids certain fats. PROGNOSIS Essential hypertension cannot be cured. Lifestyle changes and medical treatment can lower blood pressure and reduce complications. The prognosis of secondary hypertension depends on the underlying cause. Many people whose hypertension is controlled with medicine or lifestyle changes can live a normal, healthy life. RISKS AND COMPLICATIONS While high blood pressure alone is not an illness, it often requires treatment due to its short- and long-term effects on many organs. Hypertension increases your risk for: CVAs or strokes (cerebrovascular accident ). Heart failure due to chronically high blood pressure (hypertensive cardiomyopathy ). Heart attack (myocardial infarction ). Damage to the retina (hypertensive retinopathy ). Kidney failure (hypertensive nephropathy ). Your caregiver can explain list items above that apply to you. Treatment of hypertension can significantly reduce the risk of complications. TREATMENT For overweight patients, weight loss and regular exercise are recommended. Physical fitness lowers blood pressure. Mild hypertension is usually treated with diet and exercise. A diet rich in fruits and vegetables, fat-free dairy products, and foods low in fat and salt (sodium ) can help lower blood pressure. Decreasing salt intake decreases blood pressure in a 1/3 of people. Stop smoking if you are a smoker. The steps above are highly effective in reducing blood pressure. While these actions are easy to suggest, they are difficult to achieve. Most patients with moderate or severe hypertension end up requiring medications to bring their blood pressure down to a normal level. There are several classes of medications for treatment. Blood pressure pills (antihypertensives ) will lower blood pressure by their different actions. Lowering the blood pressure by 10 mmHg may decrease the risk of complications by as much as 25%. The goal of treatment is effective blood pressure control. This will reduce your risk for complications. Your caregiver will help you determine the best treatment for you according to your lifestyle. What is excellent treatment for one person, may not be for you. HOME CARE INSTRUCTIONS Do not smoke. Follow the lifestyle changes outlined in the "Prevention" section. If you are on medications, follow the directions carefully. Blood pressure medications must be taken as prescribed. Skipping doses reduces their benefit. It also puts you at risk for problems. Follow up with your caregiver, as directed. If you are asked to monitor your blood pressure at home, follow the guidelines in the "Diagnosis" section above. SEEK MEDICAL CARE IF: You think you are having medication side effects. You have recurrent headaches or lightheadedness. You have swelling in your ankles. You have trouble with your vision. SEEK IMMEDIATE MEDICAL CARE IF: You have sudden onset of chest pain or pressure, difficulty breathing, or other symptoms of a heart attack. You have a severe headache. You have symptoms of a stroke (such as sudden weakness, difficulty speaking , difficulty walking). MAKE SURE YOU: Understand these instructions. Will watch your condition. Will get help right away if you are not doing well or get worse. Document Released: 10/17/2006 Document Revised: 01/08/2013 Document Reviewed: [employer] Patient Information 2014 [email or web address]. No follow up information was provided. Extracted from: Title: Office Visit Note Author: Nick Rosa MD Date: 12/24/14 Assessment/Plan Abnormal glucose This issue is stable and appropriate refills, lab, and f/u have been discussed. Lab pending. Ordered: Hemoglobin A1c TSH with Reflex Free T4 Adult-onset obesity Diet and exercise when bp is better controlled. A work/school note was offered and deferred by the patient. BPH (benign prostatic hyperplasia) This issue is stable and appropriate refills, lab, and f/u have been discussed. Controlled diabetes mellitus This issue is stable and appropriate refills, lab , and f/u have been discussed. Lab pending. ED (erectile dysfunction) This issue is stable and appropriate refills, lab, and f/u have been discussed. Samples of cialis given as a courtesy. High cholesterol This issue is stable and appropriate refills, lab, and f/u have been discussed. Ordered: Lipid Panel Hypertension Add lisinopril 10mg po qhs and close follow up. Awaiting lab. Very elevated blood pressure may be a reflection of his alcohol use or untreated sleep apnea. Cut back on alcohol, get a sleep medicine evaluation, stop all otc nsaids, watch diet. Ordered: CBC w/ Differential Comprehensive Metabolic Panel Uric Acid Uric Acid Urinalysis with Culture if Indicated Snoring To [facility] for snoring evaluation. Orders: finasteride, 1 tabs, Oral, Daily, # 90 tabs, 1 Refill(s), [facility], 1 tabs Oral Daily hydrochlorothiazide, 1 tabs, Oral, Daily, # 90 tabs, 1 Refill(s), Pharmacy: [facility], 1 tabs Oral Daily,x90 days lisinopril, 1 tabs, Oral, Daily, # 30 tabs, 0 Refill(s), Pharmacy: [facility]
--- OUTSIDE RECORDS SUMMARY | 2017-03-22 15:37 | XMS REPORT | Continuity of Care Document ---
Author Author Anisa Krishnan LPN Ambulatory Address [address] [place] [id number] Phone Unavailable Care Team Providers Care Broadcast Operations Technician Name Role Phone Nick Rosa PP Unavailable Payers Payer name Insurance type Covered green party ID Authorization(s) Unknown Problems Condition Effective Dates (start - stop) Clinical Status Otalgia - *Acute Temporomandibular joint disorders, unspecified - *Acute Hypertension, Benign - *Chronic Other and unspecified hyperlipidemia - *Chronic Diabetes Mellitus Type 2, Uncomplicated - *Chronic BPH - *Chronic Erectile Dysfunction - *Chronic Anxiety - *Chronic Hypertension, Benign - *Chronic Diabetes Mellitus Type 2, Uncomplicated - *Chronic Other and unspecified hyperlipidemia - *Chronic Anxiety - *Chronic Erectile Dysfunction - *Chronic Obesity - *Chronic Depression - *Chronic Family History Family Member Diagnosis Age At Onset Status Mother (Unknown) Alive and well (Unknown) Father (Unknown) Alive and well (Unknown) Social History Social History Element Description Quantity Unknown Allergies, Adverse Reactions, Alerts Substance Reaction Severity Status Unknown Medications Medication Instructions Dosage Effective Dates (start - stop) Status Celexa 20 mg tablet Take 1 tablet by mouth every day. - Active finasteride 5 mg tablet Take 1 tablet by mouth every day. - Active hydrochlorothiazide 25 mg tablet Take 1 tablet by mouth every day. 2012 - Active Cialis 20 mg tablet Take 1/2 to 1 tablet by mouth 1 or 2 hours before use on an empty stomach. - Active Ativan 0.5 mg tablet Take 1 tablet by mouth every 8 hours as needed. - Active metoprolol tartrate 50 mg tablet Take 1 tablet by mouth twice a day. - Active Mevacor 20 mg tablet take 2 tablet (40MG) by oral route every day with the evening meal 40 MG - Active Glucophage 500 mg tablet Take 1 tablet by mouth every day. - Active Immunizations Vaccine Date Status Comments Unknown Results Test Name Date and Time Measure Units Reference Range Abnormal Flag Comments Unknown Vital Signs Date / Time: Height Weight Pulse Rate Blood Pressure Temperature /16:32:00 70.00 in 236.00 lbs 160/92 mm[Hg] 98.0 F Procedures Procedure Date Unknown Encounters Encounter Location Date Patient Visit [facility] Patient Visit [facility] Patient Visit [facility] Patient Visit [facility] Advance Directives Directive Effective Date Unknown
--- OUTSIDE RECORDS SUMMARY | 2017-03-22 15:37 | XMS REPORT | Referral Summary ---
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 Role Phone Russell Rosa Primary Care Physician [phone] Encounter VC Date(s): 12/16/15 - 12/16/15 [facility], Family [address] [place] [id number]- Discharge Disposition: 01-Home or Self Care Attending Physician: Nick Rosa MD Admitting Physician: Nick Rosa MD Vital Signs Most recent to 1 oldest [Reference Range]: Blood Pressure 140/90 mmHg [90-140/60-90 mmHg] (12/16/15 9:59 AM) Problem List Condition Effective Dates Status [...] DAILY, # 90 tabs, 1 Refill(s), eRx: [id number], TAKE ONE TABLET BY MOUTH ONCE DAILY Start Date: 08/01/15 Status: Ordered Daily Multivitamins oral tablet 1 tabs, Oral, Daily, 0 Refill(s) Start Date: 09/03/15 Status: Ordered finasteride 5 mg oral tablet See Instructions, TAKE ONE TABLET BY MOUTH ONCE DAILY, # 90 tabs, eRx: [facility], TAKE ONE TABLET BY MOUTH ONCE DAILY Start Date: 10/22/15 Status: Ordered Fish Oil 1000 mg oral capsule 1,000 mg 1 caps, Oral, BID, # 60 caps, 0 Refill(s) Start Date: 09/03/15 Status: Ordered hydrochlorothiazide 25 mg oral tablet 1 tabs, Oral, Daily, # 90 tabs, 1 Refill(s), Pharmacy: [place] [id number], 1 tabs Oral Daily,x90 days Start Date: 12/24/14 Stop Date: 06/22/15 Status: Ordered lisinopril 30 mg oral tablet 1 tabs, Oral, Daily, # 30 tabs, 0 Refill(s), Pharmacy: [place] [id number] Start Date: 12/24/14 Status: Ordered lovastatin 20 mg oral tablet See Instructions, TAKE TWO TABLETS BY MOUTH ONCE DAILY, # 180 tabs, 1 Refill(s) , eRx: [place] [id number], TAKE TWO TABLETS BY MOUTH ONCE DAILY Start Date: 08/01/15 Status: Ordered metFORMIN 500 mg oral tablet See Instructions, TAKE ONE TABLET BY MOUTH ONCE DAILY, # 90 tabs, 1 Refill(s), eRx: [place] [id number], TAKE ONE TABLET BY MOUTH ONCE DAILY Start Date: 08/01/15 Status: Ordered Metoprolol Tartrate 50 mg oral tablet See Instructions, TAKE ONE TABLET BY MOUTH TWICE DAILY, # 180 tabs, 2 Refill(s) , eRx: [place] [id number], TAKE ONE TABLET BY MOUTH TWICE DAILY [...] Author: Nick Rosa MD Date: Family Medicine Benign Prostatic Hyperplasia An enlarged prostate (benign prostatic hyperplasia) is common in older men. You may experience the following: Weak urine stream. Dribbling. Feeling like the bladder has not emptied completely. Difficulty starting urination. Getting up frequently at night to urinate. Urinating more frequently during the day. HOME CARE INSTRUCTIONS Monitor your prostatic hyperplasia for any changes. The following actions may help to alleviate any discomfort you are experiencing: Give yourself time when you urinate. Stay away from alcohol. Avoid beverages containing caffeine, such as coffee, tea, and fidencio, because they can make the problem worse. Avoid decongestants, antihistamines, and some prescription medicines that can make the problem worse. Follow up with your health care provider for further treatment as recommended. SEEK MEDICAL CARE IF: You are experiencing progressive difficulty voiding. Your urine stream is progressively getting narrower. You are awaking from sleep with the urge to void more frequently. You are constantly feeling the need to void. You experience loss of urine, especially in small amounts. SEEK IMMEDIATE MEDICAL CARE IF: You develop increased pain with urination or are unable to urinate. You develop severe abdominal pain, vomiting, a high fever, or fainting. You develop back pain or blood in your urine. MAKE SURE YOU: Understand these instructions. Will watch your condition. Will get help right away if you are not doing well or get worse. This information is not intended to replace advice given to you by your health care provider. Make sure you discuss any questions you have with your health care provider. Document Released: 10/17/2006 Document Revised: 08/05/2015 Document Reviewed: [employer] Patient Information 2015 [employer]. No follow up information was provided. Extracted from: Title: Office Visit Note Author: Nick Rosa MD Date: 12/16/15 Assessment/Plan Adult-onset obesity Diet and exercise as tolerated and feasible. Consider medication when interested. Anxiety This issue was reviewed, appears stable, and current therapy continued except as mentioned. Appropriate lab was reviewed from the most recent appropriate entry and lab was ordered if needed in the cpoe/nursing orders, and follow up recommended generally in 90 days and no later then six months. Refill meds. Benign essential HTN This issue was reviewed, [...] and no later then six months. Lab stable. Controlled diabetes mellitus The patient was notified for the need for regular quarterly f/u of their diabetes. Further any pertinent medication, supplies, etc were refilled. Additionally, they are to have annual eye exams, foot exams, and regular care. HbA1C was normal at 4.8 in 07/2015 at [facility]. ED (erectile dysfunction) This issue was reviewed, appears stable, and current therapy continued except as mentioned. Appropriate lab was reviewed from the most recent appropriate entry and lab was ordered if needed in the cpoe /nursing orders, and follow up recommended generally in 90 days and no later then six months. A work/school note was offered and deferred by the patient. Hyperlipidemia This issue was reviewed, appears stable, and current therapy continued except as mentioned. Appropriate lab was reviewed from the most recent appropriate entry and lab was ordered if needed in the cpoe/nursing orders, and follow up recommended generally in 90 days and no later then six months. Lab stable at [facility]. Mass on back To Dr. LAGUERRE for excision.
--- OUTSIDE RECORDS SUMMARY | 2017-03-22 15:37 | XMS REPORT | Referral Summary ---
Author Author [facility] Organization [facility] Address Unknown Phone Unavailable Care Team Providers Care Division Sergeant Name Role Phone Russell Rosa Primary Care Physician [phone] Encounter VC Date(s): 07/31/15 - 07/31/15 [facility] [address] [place] [id number]- Discharge Disposition: 01-Home or Self Care Attending [...] MOUTH ONCE DAILY, # 90 tabs, eRx: [id number], TAKE ONE TABLET BY MOUTH ONCE DAILY Start Date: 05/14/15 Status: Ordered finasteride 5 mg oral tablet See Instructions, TAKE ONE TABLET BY MOUTH ONCE DAILY NEEDS APPT PRIOR TO ADDITIONAL REFILLS, # 90 tabs, 0 Refill(s), Pharmacy: [id number], TAKE ONE TABLET BY MOUTH ONCE DAILY; NEEDS APPT PRIOR TO ADDITIONAL REFILLS Start Date: 07/17/15 Status: Ordered hydrochlorothiazide 25 mg oral tablet 1 tabs, Oral, Daily, # 90 tabs, 1 Refill(s), Pharmacy: [facility], 1 tabs Oral Daily,x90 days Start Date: 12/24/14 Stop Date: 06/22/15 Status: Ordered lisinopril 30 mg oral tablet 1 tabs, Oral, Daily, # 30 tabs, 0 Refill(s), Pharmacy: [place] [facility] [id number] Start Date: 12/24/14 Status: Ordered metFORMIN 500 mg oral tablet See Instructions, TAKE ONE TABLET BY MOUTH ONCE DAILY, # 90 tabs, 1 Refill(s), eRx: [facility] [id number], TAKE ONE TABLET BY MOUTH ONCE DAILY Start Date: 01/27/15 Status: Ordered Metoprolol Tartrate 50 mg oral tablet See Instructions, TAKE ONE TABLET BY MOUTH TWICE DAILY, # 180 tabs, 1 Refill(s) , eRx: [facility] [id number], TAKE ONE TABLET BY MOUTH TWICE DAILY Start Date: 01/27/15 Status: Ordered Mevacor 20 mg oral tablet 2 tabs, Oral, Daily, # 180 tabs, 1 Refill(s), Pharmacy: [facility] [id number], 2 tabs Oral Daily Start Date: 02/19/15 Status: Ordered Results No data available for [...] Released: 07/12/2002 Document Revised: 03/03/2015 Document Reviewed: ExitCare Patient Information 2015 [employer]. This information is not intended to replace [...] Addendum [place] [facility]. by Nick Rosa MD on July 31, 2015 16:33:06 CDT
--- OUTSIDE RECORDS SUMMARY | 2017-03-22 15:37 | XMS REPORT | Continuity of Care Document ---
Author Author [facility] Organization [facility] Address Unknown Phone Unavailable Allergies Active Description Code Type Severity Reaction Onset Reported/Identified Relationship to Patient Clinical Status Yes No Known Allergies NKMA N/A N/A 07/31/2015 Medications Problems Procedures Results Encounters ACCT No. Visit Date/Time Discharge Status Pt. Type Provider Facility Loc./Unit Complaint [id number] 01/14/2014 12:55:00 01/14/2014 23 :59:59 CLS Outpatient [id number] 11/27/2013 09:26:00 11/27/2013 23 :59:59 CLS Outpatient [id number] 10/08/2013 16:31:00 10/08/2013 23 :59:59 CLS Outpatient
--- OUTSIDE RECORDS SUMMARY | 2017-03-22 15:37 | XMS REPORT | Referral Summary ---
Author Author [facility] Organization [facility] Address Unknown Phone Unavailable Care Team Providers Care Imaging Technologist Name Role Phone Russell Rosa Primary Care Physician [phone] Encounter VC Date(s): 01/20/16 - 01/20/16 [facility] [address] [place] [address] [place] [id number] Discharge Diagnosis: Nodule, subcutaneous Discharge Disposition: 01-Home or Self Care Attending Physician: Rickie Lopez MD Admitting Physician: Rickie Lopez MD Referring Physician: Nick Rosa MD Vital Signs Most recent to 1 oldest [Reference Range]: Temperature Tympanic 37.2 degC [36.6-38.1 degC] (01/20/16 2:25 PM) Blood Pressure 132/72 mmHg [90-140/60-90 mmHg] (01/20/16 2:25 PM) Problem List Condition Effective Dates Status [...] AN EMPTY STOMACH, # 6 tabs, eRx: [id number], TAKE 1/2 TO 1 TABLET BY MOUTH ONE OR TWO HOURS BEFORE USE ON AN EMPTY STOMACH Start Date: 12/19/15 Status: Ordered citalopram 20 mg oral tablet See Instructions, TAKE ONE TABLET BY MOUTH ONCE DAILY, # 90 tabs, 1 Refill(s), eRx: [facility] [id number], TAKE ONE TABLET BY MOUTH ONCE DAILY Start Date: 08/01/15 Status: Ordered Daily Multivitamins oral tablet 1 tabs, Oral, Daily, 0 Refill(s) Start Date: 09/03/15 Status: Ordered finasteride 5 mg oral tablet See Instructions, TAKE ONE TABLET BY MOUTH ONCE DAILY, # 90 tabs, eRx: [facility] [id number], TAKE ONE TABLET BY MOUTH ONCE DAILY Start Date: 01/20/16 Status: Ordered Fish Oil 1000 mg oral capsule 1,000 mg 1 caps, Oral, BID, # 60 caps, 0 Refill(s) Start Date: 09/03/15 Status: Ordered hydrochlorothiazide 25 mg oral tablet 1 tabs, Oral, Daily, # 90 tabs, 1 Refill(s), Pharmacy: [place] [facility] [id number], 1 tabs Oral Daily,x90 days Start Date: 12/24/14 Stop Date: 06/22/15 Status: Ordered lisinopril 30 mg oral tablet 1 tabs, Oral, Daily, # 30 tabs, 0 Refill(s), Pharmacy: [facility] [id number] Start Date: 12/24/14 Status: Ordered lovastatin 20 mg oral tablet See Instructions, TAKE TWO TABLETS BY MOUTH ONCE DAILY, # 180 tabs, 1 Refill(s) , eRx: [facility] [id number], TAKE TWO TABLETS BY MOUTH ONCE DAILY Start Date: 08/01/15 Status: Ordered metFORMIN 500 mg oral tablet See Instructions, TAKE ONE TABLET BY MOUTH ONCE DAILY, # 90 tabs, 1 Refill(s), eRx: [facility] [id number], TAKE ONE TABLET BY MOUTH ONCE DAILY Start Date: 08/01/15 Status: Ordered Metoprolol Tartrate 50 mg oral tablet See Instructions, TAKE ONE TABLET BY MOUTH TWICE DAILY, # 180 tabs, 2 Refill(s) , eRx: [place] [id number], TAKE ONE TABLET BY MOUTH TWICE DAILY [...] smoker Assessment and Plan Extracted from: Title: Office Visit Note Author: Rickie Lopez MD Date: 01/20/16 Assessment/Plan 1.Nodule, subcutaneous Ordered: Office Visit Level 2 Est 16454 Plan:Options discussed with the patient of continued clinical observation versus excisional biopsy.Patient atthis time wished to proceed with observation. I informed the patientthat I did not feel that this subcutaneous mass was highly worrisome in nature. Mass is not suspicious in nature upon physical examination. Mass hasbeen present for 3 years per his report and has not significantly changed. It appears that the mass itself is not causing him significant discomfort. I informed the patient that we could proceed with an excisional biopsy here today in the office. I informed patient that this likely would cause him an element of some discomfort given the fact that the last itself appears to befairly deepin nature. I informed the patient that I did not feel that his left shoulder pain was a result of this subcutaneous mass involving the posterior cervical region. I thereforewould not be surprised that his intermittent left shoulder discomfort did not resolve following excision. Pros and cons of proceeding withwithexcisional biopsy was discussed the patient. Patient this timestated that he would "keep an eyeon it"and if it began to increase in its size or cause him increasingdiscomforthe would repeat present to the office for further evaluation at that time.
--- OUTSIDE RECORDS SUMMARY | 2017-03-22 15:38 | XMS REPORT | Continuity of Care Document ---
Author Author Anisa Krishnan [facility] Amb[facility] Address [address] [place] [phone] Phone Unavailable Care Team Providers Care Lead Security Officer Name Role Phone Nick Rosa PP Unavailable Payers Payer name Insurance type Covered green party ID Authorization(s) Unknown Problems Condition Effective Dates (start - stop) Clinical Status Well male exam - *Chronic Other specified [...] Dosage Effective Dates (start - stop) Status Cialis 20 mg tablet Take 1/2 to 1 tablet by mouth 1 or 2 hours before use on an empty stomach. - Active Mevacor 20 mg tablet take 2 tablet (40MG) by oral route every day with the evening meal 40 MG - Active metoprolol tartrate 50 mg tablet Take 1 tablet by mouth twice a day. - Active finasteride 5 mg tablet Take 1 tablet by mouth every day. - Active hydrochlorothiazide 25 mg tablet Take 1 tablet by mouth every day. 2013 - Active Celexa 20 mg tablet Take 1 tablet by mouth every day. - Active Ativan 0.5 mg tablet Take 1 tablet by mouth every 8 hours as needed. - Active Ativan 0.5 mg tablet Take 1 tablet by mouth every 8 hours as needed. - No Longer Active Glucophage 500 mg tablet Take 1 tablet by mouth every day. - Active Immunizations Vaccine Date Status Comments Unknown Results Test Name Date and Time Measure Units Reference Range Abnormal Flag Comments Panel Description: CBC WBC 09:58:00 6.1 K/uL 4.8-10.8 RBC 09:58:00 4.72 M/uL 4.60-6.20 HGB 09:58:00 14.2 g/dl 14.0-18.0 HCT 09:58:00 41.3 % 42.0-52.0 L MCV 09:58:00 87.5 fL 82.0-99.0 MCH 09:58:00 30.1 pg 27.0-32.0 MCHC 09:58:00 34.4 g/dL 32.0-36.0 RDW 09:58:00 13.8 % 11.5-14.5 MPV 09:58:00 11.7 fL 8.8-14.8 Platelet Count 09:58:00 238 K/uL 150-400 Immature Granulocytes 09:58:00 0.3 % 0.0-1.0 Absolute Neutrophils 09:58:00 3.52 THOUS 1.90-7.00 Absolute Lymphocytes 09:58:00 1.79 THOUS 0.80-3.30 Absolute Monocytes 09:58:00 0.59 THOUS 0.30-1.00 Absolute Eosinophils 09:58:00 0.17 THOUS 0.00-0.50 Absolute Basophils 09:58:00 0.05 THOUS 0.00-0.20 Neutrophils 09:58:00 57 % 51-75 Lymphocytes 09:58:00 29 % 20-46 Monocytes 09:58:00 10 % 4-11 Eosinophils 09:58:00 3 % 0-4 Basophils 09:58:00 1 % 0-2 Testing performed at [facility] Reference Lab [address] [place] [address] Gameplay Engineer Justice Griggs MD Panel Description: Prostatic Specific Antigen-[facility] PSA 09:58:00 1.7 ng/mL 0.0-3.5 AUA PSA Best Practice Guidelines: Age-Adjusted PSA Values by Ethnic GroupAge Range Asians - Caucasians [id number] 0-2.0 0-2.0 0-2.550-59 0-3.0 0-4.0 0-3.560-69 0-4.0 0-4.5 0-4.570-79 0-5.0 0-5.5 0-6.5Testing performed at [facility] [address] [place] [address] Gameplay Engineer Justice Griggs MD Panel Description: Urinalysis with Reflex Microscopic Appearance 09:58:00 Clear Color 09:58:00 Yellow Glucose, Urine 09:58:00 Negative Negative Ketones 09:58:00 Negative Negative Blood 09:58:00 Negative Negative Protein 09:58:00 Negative Negative Nitrites 09:58:00 Negative Negative Bilirubin 09:58:00 Negative Negative Specific Roy 09:58:00 1.023 1.003-1.03 pH 09:58:00 5.5 5.0-8.0 Urobilinogen 09:58:00 0.2 mg/dL <1.0 Leukocyte Esterase 09:58:00 Negative Negative Testing performed at [facility] [address] [place] [address] Gameplay Engineer Justice Griggs MD Panel Description: Hemoglobin [id number] Hemoglobin A1C 09:58:00 5.7 % 4.1-5.6 H Testing performed at [facility] [address] [place] [address] Gameplay Engineer Justice Griggs MD Panel Description: EAG Calculation-[facility] Estimated Average Glucose 09:58:00 116.9 mg/dL Testing performed at [facility] [address] [place] [address] Gameplay Engineer Justice Griggs MD Panel Description: Chemistry Profile Glucose 09:58:00 124 mg/dL 70-99 H BUN 09:58:00 15 mg/dL 8-26 Creatinine 09:58:00 0.91 mg/dL 0.72-1.25 Calcium 09:58:00 10.0 mg/dL 8.9-10.5 Sodium 09:58:00 143 mEq/L 135-144 Potassium 09:58:00 4.3 mEq/L 3.5-5.2 Chloride 09:58:00 108 mEq/L 99-111 CO2 09:58:00 25 mEq/L 23-31 Albumin 09:58:00 4.7 g/dL 3.5-5.0 Bilirubin Total 09:58:00 0.6 mg/dL 0.2-1.2 Alkaline Phosphatase 09:58:00 87 U/L 40-150 Protein 09:58:00 7.2 g/dL 6.4-8.3 ALT (SGPT) 09:58:00 49 U/L 0-55 AST (SGOT) 09:58:00 33 U/L 5-34 Anion Gap 09:58:00 10 3-20 Globulin 09:58:00 2.5 g/dL 1.8-4.0 Testing performed at [facility] [address] [place] [address] Gameplay Engineer Justice Griggs MD Panel Description: Lipid Profile-[facility] Cholesterol 09:58:00 203 mg/dL 0-199 H Triglycerides 09:58:00 308 mg/dL 0-149 H HDL Cholesterol 09:58:00 42 mg/dL 40-84 LDL Cholesterol 09:58:00 99 mg/dL 0-130 VLDL Cholesterol 09:58:00 62 mg/dL 0-28 H Cardiac Risk 09:58:00 4.8 0.0-5.7 Testing performed at [facility] [address] [place] [address] Gameplay Engineer Justice Griggs MD Panel Description: Non-HDL Cholesterol-[facility] Non-HDL Cholesterol 09:58:00 161 mg/dL 0-159 H Testing performed at [facility] [address] [place] [address] Gameplay Engineer Justice Griggs MD Panel Description: TSH-[facility] TSH 09:58:00 2.64 uIU/mL 0.35-4.94 Testing performed at [facility] [address] [place] [address] Gameplay Engineer Justice Griggs MD Panel Description: EGFR-[facility] eGFR 09:58:00 >60 mL/min >60 Multiply eGFR results by 1.21 for race.Testing performed at [facility] Reference [facility] [address] [place] [address] Gameplay Engineer Justice Griggs MD Panel Description: Direct Bilirubin Bilirubin Direct 09:58:00 0.2 mg/dL 0.0-0.5 Testing performed at [facility] [address] [place] [address] Gameplay Engineer Justice Griggs MD Vital Signs Date / Time: Height Weight Pulse Rate Blood Pressure Temperature /09:31:00 70.50 in 235.00 lbs 142/100 mm[Hg] 97.0 F Procedures Procedure Date Unknown Encounters Encounter Location Date Patient Visit [facility] Patient Visit [facility] Patient Visit [facility] Patient Visit [facility] Advance Directives Directive Effective Date Unknown
--- OUTSIDE RECORDS SUMMARY | 2017-03-22 15:55 | XMS REPORT | Continuity of Care Document ---
Author Author [facility] Organization [facility] Address Unknown Phone Unavailable Allergies Active Description Code Type Severity Reaction Onset Reported/Identified Relationship to Patient Clinical Status Yes No Known Allergies NKMA N/A N/A 07/31/2015 Medications Problems Procedures Results Encounters ACCT No. Visit Date/Time Discharge Status Pt. Type Provider Facility Loc./Unit Complaint [id number] 01/14/2014 12:55:00 01/14/2014 23 :59:59 CLS Outpatient [id number] 11/27/2013 09:26:00 11/27/2013 23 :59:59 CLS Outpatient [id number] 10/08/2013 16:31:00 10/08/2013 23 :59:59 CLS Outpatient
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
--- NOTE | 2017-03-22 16:02 | NUR ---
SECURITY COMPLIANCE SPECIALIST AT BEDSIDE FOR VENIPUNCTURE.
--- NOTE | 2017-03-22 16:07 | NUR ---
SONO TECH AT BEDSIDE.
[2017-03-22] MEDS ORDERED: MULT1TAB69 PO (16:23)
[2017-03-22] MEDS ORDERED: LISI30TA4 PO (16:23)
[2017-03-22 16:38] LABS: BASOPHILS % (AUTO) 0.5 % (0-2); EOSINOPHILS # (AUTO) 0.1 T/MM3 (0-0.5); EOSINOPHILS % (AUTO) 0.6 % (0-4); HCT - HEMATOCRIT 38.1 % (41-53); HGB - HEMOGLOBIN 12.6 GM/DL (13.5-17.5); IMMATURE GRANULOCYTE # (AUTO) 0.02 T/MM3 (0.00-0.03); IMMATURE GRANULOCYTE % (AUTO) 0.3 % (0.0-0.5); LYMPHOCYTES # (AUTO) 1.9 T/MM3 (1-4.8); LYMPHOCYTES % (AUTO) 24.4 % (23-45); MEAN CORPUSCULAR HGB 30.1 UUG (26-34); MEAN CORPUSCULAR HGB CONC(MCHC 33.1 GM/DL (31-37); MEAN CORPUSCULAR VOLUME 90.9 UM3 (80-100); MEAN PLATELET VOLUME 10.7 UM3 (9.4-12.4); MONOCYTES # (AUTO) 1.1 T/MM3 (0-0.8); MONOCYTES % (AUTO) 14.4 % (0-9.0); NEUTROPHILS #(AUTO)-ABSOLUTE 4.7 T/MM3 (1.8-7.7); NEUTROPHILS % (AUTO) 59.8 % (33-66); RED BLOOD COUNT 4.19 M/MM3 (4.50-5.90); WBC - WHITE BLOOD COUNT 7.9 T/MM3 (4.5-11.0)
[2017-03-22 16:43] LABS: ANION GAP 14 MEQ/L (5-15); BUN/CREATININE RATIO 20 RATIO (6-26); CALCIUM 9.4 MG/DL (8.4-10.2); CHLORIDE 104 MEQ/L (98-107); CO2 - CARBON DIOXIDE 26 MEQ/L (22-30); CREATININE 0.9 MG/DL (0.8-1.5); GLOMERULAR FILTRATION RATE 86; GLUCOSE 101 MG/DL (75-110); POTASSIUM 3.4 MEQ/L (3.6-5); SODIUM 144 MEQ/L (134-144)
--- NOTE | 2017-03-22 16:55 | DI ---
Indication: ITS.REASON: RLE redness/swelling PROCEDURE: US VENOUS DUPLEX, LOWER EXT RT: Encounter: Initial Comparison: None Technique: Color Doppler duplex and grayscale sonographic imaging of the right lower extremity was performed. Findings: There is no evidence for acute deep venous thrombosis in the right thigh. Specifically, serial graded compression was performed from the inguinal ligament to the popliteal bifurcation, on the right thigh, demonstrating appropriate compressibility of the deep venous system. In addition, color and pulsed Doppler demonstrate appropriate spontaneous flow, variation with respiration, and augmentation with calf compression. At the ankle, normal flow is identified in the posterior tibial veins; these vessels are also normal in caliber. Impression: No evidence of acute DVT in the right lower limb. .
[2017-03-22] MEDS ORDERED: SULF1TAB42 PO (17:02)
[2017-03-22 17:19] VITALS: BP 128/72; PULSE 82; RESP 18; TEMP 98; O2SAT 92
--- NOTE | 2017-03-22 17:19 | NUR ---
DEPART PT AMBULATORY TO LOBBY WITH .
[2017-03-23] MEDS ORDERED: SULFAMETHOXAZOLE/TMP 800mg/160mg TABLET PO SCH (09:00)
== END 2017-03-22 17:19 | disposition home or self-care (01) ==
LOC: ED 15:32
DX: L03.115 Cellulitis of right lower limb (principal)
CPT/HCPCS: 36415; 80048; 85025